=== PATIENT | male | born 1950 | race Caucasian/White ===

== ENCOUNTER 2018-09-11 20:30 | Outpatient (CLI) | payer MEDICARE | END 2018-09-11 20:31 | disposition home or self-care (01) | LOC: SLEEPLAB 20:30 | PROVIDERS: ATTEND Nurse Practitioner Adult Health | DX: G47.33 Obstructive sleep apnea (adult) (pediatric) (principal); R09.89 Other specified symptoms and signs involving the circulatory and respiratory systems; R06.83 Snoring; F41.9 Anxiety disorder, unspecified; J44.9 Chronic obstructive pulmonary disease, unspecified; I11.0 Hypertensive heart disease with heart failure; I50.9 Heart failure, unspecified; I21.9 Acute myocardial infarction, unspecified; I25.10 Atherosclerotic heart disease of native coronary artery without angina pectoris; G47.10 Hypersomnia, unspecified; E11.9 Type 2 diabetes mellitus without complications; I48.91 Unspecified atrial fibrillation; G47.00 Insomnia, unspecified; E66.9 Obesity, unspecified; Z68.31 Body mass index [BMI] 31.0-31.9, adult | CPT/HCPCS: 95811 ==

== ENCOUNTER 2018-12-05 11:23 | Day surgery (SDC) | payer MEDICARE ==
[2018-12-04 14:24] VITALS: BMI 31.5
[2018-12-05] MEDS ORDERED: Bupivacaine HCl 0.5%/Epinephrine 1:200,000/PF 30 ml Vial ONE (12:38)
[2018-12-05] MEDS ORDERED: Ketamine 50 MG/ML (10ML VIAL) ONE (12:43)
[2018-12-05] MEDS ORDERED: Sodium Chloride 0.9% 100 ML ONE (12:45)
[2018-12-05] MEDS ORDERED: CEFAZOLIN 1 GM VIAL ONE (12:45)
[2018-12-05] MEDS ORDERED: PROPOFOL 20 ML ONE ×2 (12:54→13:58)
[2018-12-05] MEDS ORDERED: Midazolam HCl 2 mg/2 ml Vial ONE ×2 (12:54→13:25)
[2018-12-05] MEDS ORDERED: Fentanyl 100 MCG/2 ML VIAL ONE (12:54)
[2018-12-05] MEDS ORDERED: Lidocaine 1% PF 5 ML VIAL ONE ×2 (12:58→16:10)
[2018-12-05 13:03] LABS: #Eosinphils 0.1 thou/uL (0.0-0.7); #Lymphocytes 1.3 thou/uL (1.20-3.40); #Monocytes 0.8 thou/uL (0.11-0.59); #Neutrophils 3.3 thou/uL (1.40-6.50); %Basophils 0.6 % (0.0-1.0); %Eosinophils 2.6 % (0.0-10.0); %Lymphocytes 23.8 % (21.0-51.0); Hemoglobin 12.5 g/dL (14.0-18.0); Mean Corpuscular HGB CONC 32.3 g/dL (32.0-36.0); Mean Corpuscular Hemoglobin 27.3 pg (27.0-31.0); Mean Corpuscular Volume 84.4 fL (78.0-98.0); Mean Platelet Volume 7.9 fL (7.4-10.4); Platelet Count 160 thou/uL (130-400); RBC Distribution Width 16.4 % (11.5-14.5); Red Blood Cell (RBC) Count 4.59 mill/uL (4.70-6.10); White Blood Cell (WBC) Count 5.6 thou/uL (4.8-10.8)
[2018-12-05 13:10] LABS: Hemoglobin A1c 4.7 % (4.0-6.0)
[2018-12-05 13:26] LABS: Anion Gap 12 mmol/L (10-20); BUN (Urea Nitrogen) 19 mg/dL (8.4-25.7); Calc. Creatinine Clearance 106 mL/min (70-130); Carbon Dioxide 22 mmol/L (23-31); Chloride 111 mmol/L (98-107); Estimated GFR-MDRD 79; Glucose 104 mg/dL (80-115); Potassium 4.1 mmol/L (3.5-5.1); Sodium 141 mmol/L (136-145)
[2018-12-05] MEDS ORDERED: Bupivacaine PF 0.5% 30 ML VIAL ONE (13:32)
[2018-12-05] MEDS ORDERED: HYDROcodone/Acetaminophen 5/325 mg Tablet ONE (15:14)
[2018-12-05] MEDS ORDERED: PROPOFOL 200 MG/20 ML VIAL ONE (16:10)
--- NOTE | 2018-12-05 20:56 | OP ---
DATE OF PROCEDURE: 12/05/2018 PREOPERATIVE DIAGNOSES: 1. Chronic pain syndrome. 2. Postlaminectomy syndrome. 3. Lumbar radiculopathy. POSTOPERATIVE DIAGNOSES: 1. Chronic pain syndrome. 2. Postlaminectomy syndrome. 3. Lumbar radiculopathy. PROCEDURES PERFORMED: 1. Spinal cord stimulator battery exchange. 2. Programming. 3. Fluoroscopy. SPECIMENS REMOVED: One old generator intact, discarded. ESTIMATED BLOOD LOSS: 5 mL. DESCRIPTION OF PROCEDURE: The patient was taken to the procedure room, placed prone on the procedure room table. A time-out was performed. We prepped the skin with ChloraPrep and sterile drapes were applied. We used fluoroscopy to identify the battery and the Penta lead and the skin above the battery site was anesthetized with 0.5% Marcaine plain. A 10 blade scalpel was used to make an incision, and then we blunt dissected down to the battery pocket using [place]. Battery pocket was opened, taking care not to cut the leads. The battery was removed easily. The torque wrench was used to disconnect the leads from the battery. Battery was discarded, and a new battery was connected to the leads and these were torqued down. Impedances were checked, which were all good. The battery was inserted into the existing pocket. The fascial layer was then approximated using 2-0 Vicryl suture in simple interrupted fashion. We then used a 3-0 Vicryl Rapide as a subcuticular stitch. We further occluded the wound with Dermabond. The patient was taken to the recovery room under stable condition without any apparent complications noted at this time. Job ID: [id number]
--- NOTE | 2018-12-06 07:24 | EKG ---
Test Reason : PREOP Blood Pressure : / mmHG Vent. Rate : 065 BPM Atrial Rate : 065 BPM P-R Int : 142 ms QRS Dur : 124 ms QT Int : 454 ms P-R-T Axes : 028 042 028 degrees QTc Int : 472 ms AV sequential or dual chamber electronic pacemaker No previous ECGs available Confirmed by ANGELA KENNY ([id number]) on 12/06/2018 7:24:26 AM Referred By: [email or web address] Confirmed By:ANGELA KENNY
== END 2018-12-05 15:53 | disposition home or self-care (01) ==
LOC: SDC 11:23
PROVIDERS: ATTEND Specialist
PROC: 0JH70BZ Insertion of Single Array Stimulator Generator into Back Subcutaneous Tissue and Fascia, Open Approach (ICD-10-PCS; principal; 2018-12-05)
DX: G89.4 Chronic pain syndrome (principal); M96.1 Postlaminectomy syndrome, not elsewhere classified; M47.816 Spondylosis without myelopathy or radiculopathy, lumbar region; M51.16 Intervertebral disc disorders with radiculopathy, lumbar region; Z87.891 Personal history of nicotine dependence
CPT/HCPCS: 63685; 76000; 80048; 83036; 85025; 93005; C1767; 93010; J0670; J0690; J2001; J2250; J2704; J3010; J3490; S0020